=== PATIENT | male | born 1965 | race Caucasian/White ===

== ENCOUNTER 2016-10-14 09:34 | Emergency (ER) | payer OTHER ==
[2016-10-14 09:46] VITALS: BMI 29.2
--- NOTE | 2016-10-14 10:18 | PDOC ---
History of Present Illness - General History Source: Patient Exam Limitations: No Limitations - History of Present Illness Initial Comments: 10/14/16 11:50 The patient is a 51-year-old male with a significant past medical history of HTN , s/p left eye iridectomy and glaucoma surgery, and presents to the emergency department with nausea, vomiting, and shortness of breath for 3 days. He reports that he has had 50 episodes of vomiting. He reports he has been unable to eat or take medications for the last 3 days. He reports slight diarrhea. He has not regained the ability to see from his left eye yet s/p eye surgery. He reports he has not seen his eye doctor for a post-op visit yet. The patient denies chest pain, headache and dizziness. The patient denies fever , chills, diarrhea and constipation. The patient denies dysuria, frequency, urgency and hematuria. Allergies: NKDA Past Surgical History: left eye iridectomy and glaucoma surgery Surgeons: Dr. Bhakta (glaucoma), Dr. Webb (retina) <Joana Gan - Last Filed: 10/14/16 14:49> <Wei Trammell - Last Filed: 10/14/16 17:34> - General Chief Complaint: Nausea/Vomiting Stated Complaint: POST-OP/ VOMITING, SOB Time Seen by Provider: 10/14/16 10:18 Past History <Joana Gan - Last Filed: 10/14/16 14:49> - Past Medical History HTN: Yes Psychiatric Problems: Yes (DEPRESSION) - Psycho/Social/Smoking Cessation Hx Suicidal Ideation: No Smoking History: Never smoked Information on smoking cessation initiated: No <Wei Trammell - Last Filed: 10/14/16 17:34> - Past Medical History Allergies/Adverse Reactions: Allergies Allergy/AdvReac Type Severity Reaction Status Date / Time No Known Allergies Allergy Verified 10/14/16 09:46 Home Medications: Ambulatory Orders Citalopram Hydrobromide [Celexa -] 20 mg PO DAILY 10/14/16 Hydrochlorothiazide 25 mg PO DAILY 10/14/16 Ondansetron [Zofran *Odt*] 8 mg SL TID #30 od.tablet 10/14/16 Review of Systems - Review of Systems Able to Perform ROS?: Yes Comments:: 10/14/16 11:50 GENERAL/CONSTITUTIONAL: No fever or chills. No weakness. HEAD, EYES, EARS, NOSE AND THROAT: (+) Unable to see out of left eye. No ear pain or discharge. No sore throat. CARDIOVASCULAR: No chest pain. RESPIRATORY: (+) shortness of breath. No wheezing or hemoptysis. GASTROINTESTINAL: (+) Nausea. (+) vomiting. (+)Diarrhea. No constipation. GENITOURINARY: No dysuria, frequency, or change in urination. MUSCULOSKELETAL: No joint or muscle swelling or pain. No neck or back pain. SKIN: No rash NEUROLOGIC: No headache, vertigo, loss of consciousness, or change in strength/ sensation. ENDOCRINE: No increased thirst. No abnormal weight change. HEMATOLOGIC/LYMPHATIC: No anemia, easy bleeding, or history of blood clots. ALLERGIC/IMMUNOLOGIC: No hives or skin allergy. <Joana Gan - Last Filed: 10/14/16 14:49> *Physical Exam - Vital Signs Last Vital Signs Temp Pulse Resp BP Pulse Ox 97.8 F 104 H 20 158/97 98 10/14/16 09:43 10/14/16 09:43 10/14/16 09:43 10/14/16 09:43 10/14/16 09:43 - Physical Exam Comments: 10/14/16 11:50 GENERAL: Awake, alert, and fully oriented, in no acute distress HEAD: No signs of trauma EYES: (+) Left eye iridectomy. PERRLA, EOMI, sclera anicteric ENT: Auricles normal inspection, hearing grossly normal, nares patent, oropharynx clear without exudates. Moist mucosa NECK: Normal ROM, supple, no lymphadenopathy, JVD, or masses LUNGS: Breath sounds equal, clear to auscultation bilaterally. No wheezes, and no crackles HEART: Regular rate and rhythm, normal S1 and S2, no murmurs, rubs or gallops ABDOMEN: Soft, nontender, normoactive bowel sounds. No guarding, no rebound. No masses EXTREMITIES: Normal range of motion, no edema. No clubbing or cyanosis. No cords, erythema, or tenderness NEUROLOGICAL: Cranial nerves II through XII grossly intact. Normal speech, normal gait SKIN: Warm, Dry, normal turgor, no rashes or lesions noted. <Joana Gan - Last Filed: 10/14/16 14:49> - Vital Signs Last Vital Signs Temp Pulse Resp BP Pulse Ox 97.8 F 104 H 20 158/97 98 10/14/16 09:43 10/14/16 09:43 10/14/16 09:43 10/14/16 09:43 10/14/16 09:43 <Wei Trammell - Last Filed: 10/14/16 17:34> Heart Score/ECG Review - ECG Impressions Comment:: 10/14/16 14:48 Normal sinus rhythm. T wave abnormality, consider anterior ischemia. Prolonged QT Abnormal ECG <Joana Gan - Last Filed: 10/14/16 14:49> ED Treatment Course - LABORATORY CBC & Chemistry Diagram: 10/14/16 10:30 10/14/16 10:30 - ADDITIONAL ORDERS Additional order review: Laboratory Results 10/14/16 10/14/16 10:30 10:30 INR 1.03 PTT (Actin FS) 26.7 L Sodium 135 L Potassium 3.1 L Chloride 90 L Carbon Dioxide 30 Anion Gap 15 BUN 24 H Creatinine 1.5 H Creat Clearance w eGFR 48.95 Random Glucose 143 H Calcium 9.7 Total Bilirubin 0.7 AST 28 ALT 32 Alkaline Phosphatase 86 Total Protein 8.0 Albumin 4.5 Lipase 179 10/14/16 10:30 RBC 5.51 MCV 89.0 MCHC 34.2 RDW 13.3 MPV 7.0 L Neutrophils % 77.7 Lymphocytes % 10.6 Monocytes % 11.4 H Eosinophils % 0.0 Basophils % 0.3 - RADIOLOGY Radiograph Interpretation: 10/14/16 13:54 CHEST XR PORTABLE Reviewed by: Dr. Wei Trammell Interpreted by: Dr. Esdras Delacruz IMPRESSION: No evidence of active pulmonary disease. - Medications Given in the ED: ED Medications Discontinued Medications Generic Name Dose Route Start Last Admin Trade Name Freq PRN Reason Stop Dose Admin Hydromorphone HCl 2 mg 10/14/16 10:30 10/14/16 11:01 Dilaudid Injection - IVPUSH 10/14/16 10:31 2 mg ONCE ONE Administration Sodium Chloride 1,000 mls @ 1,000 mls/hr 10/14/16 10:30 10/14/16 11:01 Normal Saline - IV 10/14/16 11:29 1,000 mls/hr ASDIR STA Administration Ondansetron HCl 4 mg 10/14/16 10:30 10/14/16 11:02 Zofran Injection IVPUSH 10/14/16 10:31 4 mg ONCE ONE Administration Potassium Chloride 40 meq 10/14/16 11:31 10/14/16 11:32 K-Dur - PO 10/14/16 11:32 40 meq NOW ONE Administration <Joana Gan - Last Filed: 10/14/16 14:49> - LABORATORY CBC & Chemistry Diagram: 10/14/16 10:30 10/14/16 10:30 <Wei Trammell - Last Filed: 10/14/16 17:34> Medical Decision Making - Medical Decision Making 10/14/16 14:47 Called and discussed case with the surgical group (Dr. Laguna- Dr. Bhakta' s fellow). <Joana Gan - Last Filed: 10/14/16 14:49> *DC/Admit/Observation/Transfer - Attestations Scribe Attestion: 10/14/16 11:51 Documentation prepared by Joana Gan, acting as medical device engineer for Wei Trammell MD. <Joana Gan - Last Filed: 10/14/16 14:49> - Discharge Dispostion Admit: No - Attestations Physician Attestion: 10/14/16 10:18 I, Dr. Wei Trammell, attest that this document has been prepared under my direction and personally reviewed by me in its entirety. I further attest, that it accurately reflects all work, treatment, procedures and medical decision -making performed by me. <Wei Trammell - Last Filed: 10/14/16 17:34> Diagnosis at time of Disposition: Gastroenteritis - Discharge Dispostion Disposition: HOME Condition at time of disposition: Good - Prescriptions Prescriptions: Ondansetron [Zofran *Odt*] 8 mg SL TID #30 od.tablet - Patient Instructions Printed Discharge Instructions: DI for Viral Gastroenteritis -- Adult Additional Instructions: Jeff- I do not have the equipment to check the pressure in your eye. I spoke with Dr. Merino who will see you tonight at the urgent care at [facility] in [place]. Please go there now. Your Zofran Rx should be waiting for you at the [facility] if you want to stop there on your way to [place]. [place]- Dr. Wei Trammell
[2016-10-14] MEDS ORDERED: SODIUM CHLORIDE 1,000 ML IV STA (10:30)
[2016-10-14] MEDS ORDERED: ONDANSETRON 4 MG/2 ML VIAL IVPUSH ONE (10:30)
[2016-10-14] MEDS ORDERED: HYDROmorphone HCL CARPU-JECT 2 MG/1 ML DISP.SYRIN IVPUSH ONE (10:30)
[2016-10-14] MEDS ORDERED: ONDANSETRON 4 MG/2 ML VIAL ONE ×2 (10:39→14:11)
[2016-10-14] MEDS ORDERED: HYDROmorphone HCL CARPU-JECT 2 MG/1 ML DISP.SYRIN ONE (10:39)
[2016-10-14 11:00] LABS: BASOPHIL 0.3 % (0-2.0); MCH 30.4 pg (25.7-33.7); MCHC 34.2 g/dl (32.0-35.9); NEUTROPHILS 77.7 % (42.8-82.8); PLATELET COUNT 393 K/MM3 (134-434); RDW 13.3 % (11.9-15.9); WHITE BLOOD COUNT 14.6 K/mm3 (4.0-10.0)
[2016-10-14 11:13] LABS: ALBUMIN 4.5 g/dl (3.4-5.0); BILIRUBIN,TOTAL 0.7 mg/dL (0.2-1.0); CALCIUM 9.7 mg/dL (8.5-10.1); CREATININE 1.5 mg/dL (0.7-1.3); INR 1.03 (0.82-1.09); PROTHROMBIN TIME (PATIENT) 11.3 SEC (9.98-11.88)
[2016-10-14 11:16] LABS: ACTIVATED PTT 26.7 SECONDS (26.9-34.4)
[2016-10-14] MEDS ORDERED: POTASSIUM CHLORIDE TABS 20 MEQ TABLET.ER (FP) PO ONE ×2 (11:26→11:31)
[2016-10-14 17:42] VITALS: BP 134/76; PULSE 92; TEMP 98.5
--- NOTE | 2016-10-16 11:13 | EKG ---
Test Reason : Blood Pressure : / mmHG Vent. Rate : 082 BPM Atrial Rate : 082 BPM P-R Int : 126 ms QRS Dur : 088 ms QT Int : 402 ms P-R-T Axes : 072 002 -33 degrees QTc Int : 469 ms NORMAL SINUS RHYTHM T WAVE ABNORMALITY, CONSIDER ANTERIOR ISCHEMIA PROLONGED QT ABNORMAL ECG NO PREVIOUS ECGS AVAILABLE Confirmed by TONY DAVIS MD ([id number]) on 10/16/2016 11:13:18 AM Referred By: Confirmed By:TONY DAVIS MD
== END 2016-10-14 17:42 | disposition home or self-care (01) ==
LOC: JER 09:34
PROC: 3E033NZ Introduction of Analgesics, Hypnotics, Sedatives into Peripheral Vein, Percutaneous Approach (ICD-10-PCS; principal; 2016-10-14)
PROC: 3E033GC Introduction of Other Therapeutic Substance into Peripheral Vein, Percutaneous Approach (ICD-10-PCS; 2016-10-14)
DX: K52.9 Noninfective gastroenteritis and colitis, unspecified (principal); Z98.890 Other specified postprocedural states
CPT/HCPCS: 36415; 71010-TC; 74176-TC; 80053; 83690; 85025; 85610; 85730; 93005; 93010; 99283-25